=== PATIENT | female | born 1970 | race Caucasian/White ===

== ENCOUNTER 2017-10-15 03:43 | Emergency (ER) | payer OTHER ==
[2017-10-15 04:07] VITALS: BP 178/83; PULSE 92; RESP 18; TEMP 98.3; O2SAT 97
--- NOTE | 2017-10-15 04:46 | C.PDOC ---
History Of Present Illness 47 year old female presents to the ED c/o bleeding from the extraction area of her tooth. Patient had a extraction done yesterday after which bleeding was resolved. Patient reports this morning bleeding started again. Patient denies injury, fall, trauma, fever, chills, nausea, vomit, diarrhea. Time Seen by Provider: 10/15/17 04:06 Chief Complaint (Nursing): Dental Pain History Per: Patient History/Exam Limitations: no limitations Onset/Duration Of Symptoms: Days Current Symptoms Are (Timing): Still Present Quality: Positive for: "Pain" Recent travel outside of the [place]: No Additional History Per: Patient Past Medical History Reviewed: Historical Data, Nursing Documentation, Vital Signs Vital Signs: Last Vital Signs Temp 98.3 F 10/15/17 03:54 Pulse 92 H 10/15/17 03:54 Resp 18 10/15/17 03:54 BP 178/83 H 10/15/17 03:54 Pulse Ox 97 10/15/17 04:46 - Medical History PMH: Hypothyroidism Surgical History: No Surg Hx Family History: States: Unknown Family Hx - Social History Hx Alcohol Use: No Hx Substance Use: No - Immunization History Hx Tetanus Toxoid Vaccination: No Hx Influenza Vaccination: No Hx Pneumococcal Vaccination: No Review Of Systems Constitutional: Negative for: Fever, Chills ENT: Positive for: Mouth Pain, Mouth Swelling. Negative for: Throat Swelling Cardiovascular: Negative for: Chest Pain Respiratory: Negative for: Shortness of Breath Gastrointestinal: Negative for: Abdominal Pain Skin: Negative for: Rash Physical Exam - Physical Exam Appears: Non-toxic, No Acute Distress Skin: Normal Color, Warm, Dry Head: Atraumatic, Normacephalic, No Swelling Eye(s): bilateral: Normal Inspection Ear(s): Bilateral: Normal Nose: No Discharge Oral Mucosa: Moist Tongue: No Lesions Lips: No Lesions Teeth: Other (clot observed in site of extraction right upper incisor, minimally active bleeding) Gingiva: No Bleeding Throat: Normal, No Erythema, No Exudate Neck: Normal ROM, Supple Chest: Symmetrical Cardiovascular: Rhythm Regular, No Murmur Respiratory: Normal Breath Sounds, No Rales, No Rhonchi, No Wheezing Gastrointestinal/Abdominal: Soft, No Tenderness, No Guarding, No Rebound Extremity: Normal ROM, No Tenderness, No Swelling Neurological/Psych: Oriented x3 Gait: Steady ED Course And Treatment O2 Sat by Pulse Oximetry: 97 (ON RA) Pulse Ox Interpretation: Normal Progress Note: Patient had lidoaine with epi soaked gauze place in the site with some pressure, bleeding resolved. Patient was D/C home with packing in her site and advised to folow up with PMD or dentist in 1-2 days. Disposition Counseled Patient/Family Regarding: Diagnosis, Need For Followup, Rx Given - Disposition Disposition: HOME/ ROUTINE Disposition Time: 04:43 Condition: STABLE Additional Instructions: Avoid brushing , mouth rinse today Apply pressure with gauze today Return to ER if worse Instructions: Tooth Extraction (DC) Forms: [employer] (Citizen Of [place]) Print Language: KAZAKH - Clinical Impression Clinical Impression: H/O tooth extraction, Gums, bleeding - PA / MAT ROLLER / Resident Statement MD/DO has reviewed & agrees with the documentation as recorded. - Scribe Statement The provider has reviewed the documentation as recorded by the Scribe Eric Ruiz All medical record entries made by the Scribe were at my direction and personally dictated by me. I have reviewed the chart and agree that the record accurately reflects my personal performance of the history, physical exam, medical decision making, and the department course for this patient. I have also personally directed, reviewed, and agree with the discharge instructions and disposition.
== END 2017-10-15 04:53 | disposition home or self-care (01) ==
LOC: C.ER 03:43
DX: K91.840 Postprocedural hemorrhage of a digestive system organ or structure following a digestive system procedure (principal); Y83.9 Surgical procedure, unspecified as the cause of abnormal reaction of the patient, or of later complication, without mention of misadventure at the time of the procedure